=== PATIENT | female | born 2005 | race African-American/Black ===

== ENCOUNTER 2025-08-15 19:39 | Emergency (ER) | payer OTHER, SELFPAY ==
--- NOTE | ~2025-08-15 | XR_ITS ---
CLINICAL HISTORY: hit distal thumb with hammer, subungual hematoma 3 view left 1st digit Comparison: None Findings: Bones intact. No dislocations. No significant loss of joint space or osteophytes. No erosions. No radiopaque foreign body. IMPRESSION: 1. No acute findings This document has been electronically signed by: Tri Cannon MD on 08/15/2025 20:57:01
[2025-08-15 19:42] VITALS: BP 119/61; PULSE 77; RESP 18; TEMP 36.5; O2SAT 96; BMI 19.6
--- NOTE | 2025-08-15 19:43 | ED_ITS ---
HPI - General Adult General Chief complaint: Extremity Injury, Upper Stated complaint: left hand first digit injury Time Seen by Provider: 08/15/25 22:02 Source: patient Mode of arrival: ambulatory Limitations: other (very quite and not forthcoming) History of Present Illness ED Provider: MAJOR HPI narrative: 19 yo female R hand dominant here with c/o L thumb pain and swelling after hitti ng it with hammer at school. She denies any other trauma. She has not taken any medications for it. complaint: L thumb injury Onset (ago): hour(s) (several) Location: left and upper extremity Radiation: non-radiation Severity: mild Quality: aching Pain Consistency: constant Relieving factors: none Exacerbating factors: movement Associated symptoms: denies other symptoms Treatments prior to arrival: none Related Data Allergies Allergy/AdvReac Type Severity Reaction Status Date / Time No Known Allergies Allergy Verified 08/15/25 19:45 Review of Systems Review of Systems: Yes all other systems are reviewed and are negative [facility] Past Medical History Attestation statement: The following information was validated with the patient. Source: old records reviewed Medical History No pertinent past medical history Social History Social History (Updated 08/15/25 @ 22:36 by Fatimah Jenkins DO) Patient Tobacco Use Status: Tobacco use Unknown Physical Exam ED Vital Signs: Vital Signs - 24 hr 08/15/25 19:42 Temperature 97.7 F Pulse Rate 77 Respiratory Rate 18 Blood Pressure 119/61 Pulse Oximetry 96 Oxygen Delivery Method Room Air BMI result Body Mass Index 19.6 Appearance: Alert. Oriented X3. No acute distress. Eyes: normal in appearance ENT: Pharynx normal. Neck: Normal inspection. CVS: Pulses normal. Respiratory: Breath sounds normal. Skin: Skin warm and dry. Normal skin color. Extremities: L thumb mild swelling and contusion to prox nail fold, just around lunula itself the nail is intact but there is a small subungual hematoma. distal NV intact Neuro: Oriented X 3. No motor deficit. No sensory deficit. Course Course Course Narrative: This is a rapid medical exam performed by Danyell Reveles NP: Additional HPI, ROS, PE not included below will be deferred to primary provider. Patient is a 19y/o right hand dominant F presenting with complaint of left thumb pain. States she accidentally struck it with a hammer earlier today at school. +subungual hematoma. Plan: x-ray Procedures Orthopedic Splinting/Casting Injury #1: Side: left Upper Extremity Injury Location: finger Upper Extremity Immobilizer: finger (other) Medical Decision Making Medical Decision Making [facility] Narrative: 19 yo female R hand dominant injury to L thumb from hammer she has a small subungual hematoma but it is over the lunula I do not feel I should drain this given the location. Will splint provide analagesia and instruct return precautions. Xray ordered for tuft fracture, Nail is intact, no skin break Differential Diagnosis Differential Diagnoses: The differential diagnosis associated with the presentation includes fracture, subungual hematoma Admission/Observation Consideration of admission/observation: Escalation of care including admission/observation considered stable for DC Independent Interpretation I performed an independent interpretation of an: Plain X-Ray (no fx) Prescription Management I considered prescription management with: Pain Medication Discharge Plan Discharge Clinical Impression: Contusion of left thumb, Subungual hematoma of finger Patient Disposition: Home, Self-Care Instructions: Subungual Hematoma (ED), Contusion in Adults (ED) Additional Instructions: wear splint for 5 days keep elevated the blood under your nail was not in an area we could safely drain please monitor for worsening symptoms, swelling, redness, signs of infection Stand Alone Forms: Work/School Release Print Language: Albanian
[2025-08-15 22:32] VITALS: BP 119/61; PULSE 77; RESP 18; TEMP 36.5; O2SAT 96
== END 2025-08-15 22:32 | disposition home or self-care (01) ==
PROVIDERS: Emergency Provider Emergency Medicine
DX: S60.012A Contusion of left thumb without damage to nail, initial encounter (principal); W22.8XXA Striking against or struck by other objects, initial encounter; Y93.9 Activity, unspecified; Y92.9 Unspecified place or not applicable; R60.0 Localized edema
CPT/HCPCS: 73140; 99283

== ENCOUNTER → 2025-08-15 19:46 | Outpatient (BNV) | payer OTHER, SELFPAY | PROVIDERS: Visit Provider Radiology Diagnostic Radiology | DX: S60.012A Contusion of left thumb without damage to nail, initial encounter (principal); Y92.219 Unspecified school as the place of occurrence of the external cause; W27.8XXA Contact with other nonpowered hand tool, initial encounter | CPT/HCPCS: 73140 ==